=== PATIENT | male | born 1950 | race Caucasian/White ===

== ENCOUNTER → 2018-05-26 09:17 | Outpatient (CLI) | payer MEDICARE, MEDICAID, SELFPAY ==
[2018-05-26 12:09] LABS: Absolute Lymphocyte Count 2.11 X10^3/ul (0.83-4.51); Absolute Neutrophil Count 3.3 X10^3/uL (2.0-7.7); Basophil# 0.05 X10^3/uL; Basophil% 0.8 % (0-1); Eosinophils% 3.1 % (0-5); Hematocrit 48.9 % (40-54); Hemoglobin 16.5 g/dl (13.0-16.5); Lymphocyte # 2.11 X10^3/ul (4.0); Lymphocyte % 33.1 % (19-41); Mean Corp Hgb Conc 33.7 g/gl (32-36); Mean Corpuscular Volume 94.8 fL (80-94); Mean Platelet Vol. 10.1 fl (6.2-12.0); Monocyte# 0.67 X10^3/uL; Monocyte% 10.5 % (0-10); Neutrophil # 3.32 X10^3/uL (2.7-7.7); Neutrophil % 52.2 % (47-70); Platelet Count 211 K/mm3 (150-450); Red Blood Count 5.16 M/mm3 (4.6-6.2); White Blood Count 6.4 K/mm3 (4.4-11.0)
[2018-05-26 12:12] LABS: Differential Indicated SCAN CRITERIA MET; POSITIVE COUNT NO; POSITIVE DIFFERENTIAL NO; POSITIVE MORPHOLOGY YES
[2018-05-26 12:24] LABS: ALB/GLOB Ratio 1.1 RATIO (0.9-2.4); AST(SGOT) 24 U/L (15-37); Alanine Aminotransfer ALT/SGPT 26 U/L (16-61); Albumin, Serum 3.8 g/dL (3.2-5.0); Alkaline Phosphatase 76 U/L (45-117); Anion Gap 7 (5-15); BUN 13 mg/dL (7-18); Calcium,Total 8.5 mg/dL (8.5-10.1); Chloride 107 mmol/L (98-107); Creatinine, Serum 0.81 mg/dL (0.70-1.30); EST Glomerular Filtration Rate 101 mL/min (>60); Est Glom Filt Rate - Afr Amer 123 mL/min (>60); Globulin 3.6 g/dL (2.2-4.2); Glucose 91 mg/dL (74-106); Potassium 4.4 mmol/L (3.5-5.1); Protein, Total 7.4 g/dL (6.4-8.2); Sodium Level 139 mmol/L (136-145); Thyroid Stim Hormone (TSH) 4.17 uIU/mL (0.358-3.74)
[2018-05-26 12:27] LABS: Platelet Estimate ADEQUATE (ADEQ); Platelet Morphology LARGE
== END ==
PROVIDERS: Family Provider Family Medicine; PCP Family Medicine; Referring Provider Family Medicine; Visit Provider Family Medicine
DX: E78.00 Pure hypercholesterolemia, unspecified (principal); L65.9 Nonscarring hair loss, unspecified; R63.5 Abnormal weight gain
CPT/HCPCS: 36415; 80053; 84443; 85025

== ENCOUNTER → 2018-06-15 | Outpatient (CLI) | payer MEDICARE, MEDICAID, SELFPAY ==
--- NOTE | 2018-06-15 13:11 | CT_ITS ---
STUDY: LOW DOSE CT LUNG CANCER SCREENING REASON FOR EXAM: Male, 67 years old. 49 pack-year history of smoking. RADIATION DOSAGE (If Supplied By Facility): CTDIvol = ( 4.02 ) mGy, DLP = ( 165.07 ) mGycm TECHNIQUE: No contrast was administered. Low dose technique was utilized (average mAS-38 and kVp 120). 1.25 mm axial source images with a slice interval of 1.25-mm were reconstructed in lung windows. 2.5 mm axial source images with a slice interval of 2.5-mm were reconstructed in lung windows. 5.0 mm axial source images with a slice interval of 5.0-mm were reconstructed in soft tissue windows. Nodule measured using lung windows on PACS and/or independent workstation with automated measurement of minimum and maximum diameter. Nodule measurement reported as average diameter rounded to the nearest whole number. Growth is defined as an increase ins size of greater than 1.5 mm. COMPARISON: None. NODULES: No nodules are seen. Total lung nodules (excluding granulomas): Aorta: Scattered calcified plaques at the level of the aortic arch. Coronary arteries: Coronary artery calcifications. Heart: Not enlarged. Pulmonary artery: Unremarkable. Mediastinal nodes: Small benign-appearing mediastinal lymph nodes. Other chest and abdominal findings: CT/Low Dose CT Lung Screening IMPRESSION: Lung-RADS category 2 - Continue annual screening with LDCT in 12 months. IMPORTANT NOTES FOR USE: ACR Lung-RADS Version 1.0 Assessment Categories Release Date: July 03, 2013 Category: Coded 0-4 bases on nodule(s) with highest degree of suspicion. Negative screen is defined as categories 1 and 2; a positive screen is defined as categories 3 and 4. Category 3 and 4A nodules that are unchanged on interval CT should be coded as category 2, and individuals returned to screening in 12 months. Category 4X: Category 3 or 4 nodules with additional imaging findings that increase the suspicion of lung cancer, such as spiculation, GGN that doubles in size in 1 year, enlarged lymph notes, etc. Category Modifiers: S (significant finding unrelated to lung cancer) and C (prior history of treated lung cancer) may be added to the 0-4 Lung-RADS Electronically Signed: Marvel Dixon, at 15:19 EDT , Service support ,
== END | disposition home or self-care (01) ==
LOC: CT 13:10
PROVIDERS: Family Provider Family Medicine; PCP Family Medicine; Referring Provider Family Medicine; Visit Provider Family Medicine
DX: Z87.891 Personal history of nicotine dependence (principal); Z12.2 Encounter for screening for malignant neoplasm of respiratory organs
CPT/HCPCS: G0297

== ENCOUNTER 2018-07-22 09:04 | Day surgery (SDC) | payer MEDICARE, MEDICAID, SELFPAY ==
[2018-07-05 09:09] VITALS: BMI 38.9
--- NOTE | 2018-07-06 01:26 | HP_ITS ---
Intake Vital Signs 07/05/18 Height 5 ft 8 in 07/05/18 Weight: 256 lb 07/05/18 Body Mass Index (BMI) 38.9 07/05/18 Blood Pressure 146/80 H 07/05/18 Blood Pressure Location Rt brachial 07/05/18 Blood Pressure Position Sitting 07/05/18 Respiratory Rate 20 H 07/05/18 Pulse Rate 72 07/05/18 Pulse Source Monitor 07/05/18 Temperature 98.2 F 07/05/18 Temperature Source Oral 07/05/18 Pulse Ox 98 07/05/18 Oxygen Delivery Method room air Intake Visit Reasons: [employer] Required: No Is patient in pain?: No Allergies Penicillins Allergy (Intermediate, Verified 07/05/18 09:11) hives Medications ascorbic acid (vitamin C) 1,000 mg tablet 1 g PO DAILY tab 07/05/18 [History Confirmed 07/05/18] aspirin 500 mg tablet 500 mg PO DAILY 07/05/18 [History Confirmed 07/05/18] atorvastatin 20 mg tablet 20 mg PO QHS 07/05/18 [History Confirmed 07/05/18] calcium pantothenate 500 mg tablet mg PO tab 07/05/18 [History Confirmed 07/05/18] capsicum (cayenne) 450 mg capsule mg PO cap 07/05/18 [History Confirmed 07/05/18] cod liver oil capsule 1 cap PO DAILY 07/05/18 [History Confirmed 07/05/18] cranberry concentrate-ascorbic acid 4,200 mg-20 mg capsule cap PO cap 07/05/18 [History Confirmed 07/05/18] glucosamine HCl 1,500 mg tablet 1,500 mg PO DAILY 07/05/18 [History Confirmed 07/05/18] levothyroxine 50 mcg capsule 50 mcg PO DAILY 07/05/18 [History Confirmed 07/05/18] methylsulfonylmethane 1,000 mg capsule 1,500 mg PO DAILY cap 07/05/18 [History Confirmed 07/05/18] niacin 500 mg tablet 500 mg PO DAILY 07/05/18 [History Confirmed 07/05/18] potassium 99 mg tablet 2.5 meq PO DAILY 07/05/18 [History Confirmed 07/05/18] tamsulosin 0.4 mg capsule 0.4 mg PO DAILY 07/05/18 [History Confirmed 07/05/18] vitamin A 2,500 unit-vit C 100 mg-biotin 2,500 [id number] capsule cap PO cap 07/05/18 [History Confirmed 07/05/18] vitamin E (dl, acetate) 400 unit capsule 400 unit PO DAILY 07/05/18 [History Confirmed 07/05/18] yeast 500 mg (7.5 gr) tablet 500 mg PO BID 07/05/18 [History Confirmed 07/05/18] [facility] Medical History Arthritis (Acute) Gout (Acute) History of back problems (Acute) Hypercholesterolemia (Acute) Thyroid disease (Acute) Surgical History No history of previous surgery (Acute) Family History Father Arthritis Heart disease High cholesterol Brother Diabetes Hypertension High cholesterol Social History Smoking Status: Former smoker alcohol intake: current details: 2-6 beers per day substance use type: does not use HPI HPI HPI: RISA HOWELL, is a 67 M who presents to the office today for HPI HPI Surgical H&P: Yes HPI: RISA HOWELL, is a 67 M who presents to the office today for positive Cologuard. Patient has no family history of colon cancer no blood in his stool. He has never had a colonoscopy in the past. He is not describing any abdominal pain. ROS General General: Yes weight change and fatigue; no appetite, colon cancer, breast cancer or weakness HEENT HEENT: No difficulty swallowing, eye injury, eye surgery, swollen glands or hoarseness Endo Endocrine: Yes thyroid disease; no diabetes mellitus, thyroid cancer, Hair loss, heat intolerance or cold intolerance Skin Skin: No rash or changing moles Breast Breast: No left breast lump, right breast lump, nipple discharge, breast pain, abnormal mammogram, abnormal US or breast enlargement Musc Musculoskeletal: Yes back problems, arthritis and gout; no rheumatoid arthritis or joint pain Cardio Cardiovascular: No murmur, pacemaker, heart disease, atrial fibrillation, high blood pressure, heart attack, heart stent, palpitations, shortness of breat with exertion or chest pain Psych Psychiatric: No depression, anxiety or hearing voices Resp Respiratory: No shortness of breath, No sleep apnea, No cough, No COPD, No asthma, No emphysema, No wheezing Gastro Gastrointestinal: No abdominal pain, No nausea or vomiting, No diarrhea, No constipation, No blood in stool, No acid reflux, No hemorrhoids, No ulcers, No gallbladder problem, No black,tarry stools [place] Hematologic: No blood thinners, No blood disorders, No bleeding, No anemia, No blood clots Neuro Neurologic: No system reviewed and no additional complaints, except as docu, No as per HPI, No abnormal walking, No abnormal hearing, No abnormal movements, No abnormal speech, No behavioral changes, No burning sensations, No confusion, No seizure-like activity, No unsteadiness, No dizziness, No localized weakness, No frequent falls, No headache(s), No lack of coordination, No loss of vision, No memory loss, Yes numbness, No other visual disturbances, No radiating pain, No restless legs, No sensory deficit, No fainting, Yes tingling, No tremor(s), No weakness, No other Exam Const General: cooperative, no acute distress Chest Breast Palpation: No nipple discharge Resp Effort & Inspection: normal respiratory effort Auscultation: clear to auscultation bilaterally Cardio Rate: regular rate Rhythm: regular rhythm Heart Sounds: no murmurs GI Inspection: normal to inspection Palpation: soft, nontender Assessment & Plan Problems 1. Positive colorectal cancer screening using DNA-based stool test R19.5 Plan Recommend colonoscopy for positive Cologuard test. I explained endoscopy in detail to the patient. I explained the risks including but not limited to stroke or heart attack with anesthesia, perforation of the GI tract, bleeding, infection. I explained that any of these could necessitate further emergency surgery. The patient understands and all questions were answered sufficiently. The patient wishes to proceed with procedure. Donta Lazaro MD Pager: [facility] [address] [place] [address], [address] [place] [address] Office: Orders Orders: Colonoscopy Today R19.5 Coding Level of Care Code Off vis,new,level 3 Diagnoses Positive colorectal cancer screening using DNA-based stool test R19.5 07/06/18 1326 <Electronically signed by Donta Lazaro MD> Date Donta Lazaro MD I have re-examined the patient. There are no clinical changes since date of exam. Donta Lazaro MD Pager: [facility] [address] [place] [address], [address] [place] [id number] Office:
[2018-07-22 09:47] VITALS: BP 157/79; PULSE 69; RESP 18; TEMP 36.6; O2SAT 96; BMI 44.9
[2018-07-22 11:15] VITALS: BP 104/70; BP 157/79; PULSE 70; RESP 16; TEMP 36.2; O2SAT 94
--- NOTE | 2018-07-22 11:16 | OP.ENDO_ITS ---
07/22/2018 Radha Coleman [facility] [address] [place] [address] Re : Colonoscopy procedure for Jose Leblanc Dear Dr. Coleman This procedure was performed on Sunday, July 22, 2018. My impressions and recommendations are as follows: Impressions : - The entire examined colon is normal on direct and retroflexion views. - No specimens collected. Recommendations : - Discharge patient to home. - Resume previous diet. - Continue present medications. - Repeat colonoscopy in 10 years for screening purposes. My findings are described in the full procedure note, which is enclosed. If I can be of further assistance, please feel free to contact me at Doctor phone number(s): , Work: . Sincerely, Donta Lazaro MD 07/22/2018 11:15:45 AM This report has been signed electronically.
[2018-07-22 11:20] VITALS: BP 124/81; BP 157/79; PULSE 73; RESP 16; O2SAT 93
[2018-07-22 11:25] VITALS: BP 141/90; BP 157/79; PULSE 69; RESP 16; O2SAT 95
[2018-07-22 11:30] VITALS: BP 145/86; BP 157/79; PULSE 64; RESP 16; TEMP 36.6; O2SAT 96
[2018-07-22 11:34] VITALS: BP 157/79
== END 2018-07-22 12:02 | disposition home or self-care (01) ==
LOC: EN 09:07 → AC 09:31
PROVIDERS: Family Provider Family Medicine; PCP Family Medicine; Referring Provider Family Medicine; Visit Provider Surgery
PROC: 0DJD8ZZ Inspection of Lower Intestinal Tract, Via Natural or Artificial Opening Endoscopic (ICD-10-PCS; CPT 45378; principal; 2018-07-22 10:25)
DX: R19.5 Other fecal abnormalities (principal); E78.00 Pure hypercholesterolemia, unspecified; E07.9 Disorder of thyroid, unspecified; M19.90 Unspecified osteoarthritis, unspecified site; M10.9 Gout, unspecified; Z87.891 Personal history of nicotine dependence; Z79.82 Long term (current) use of aspirin; Z79.899 Other long term (current) drug therapy
CPT/HCPCS: 45378; J7120

== ENCOUNTER → 2018-09-05 | Outpatient (CLI) | payer MEDICARE, MEDICAID, SELFPAY ==
[2018-09-05 10:31] LABS: Cholesterol 185 mg/dL (200); High Density Lipoprotein 36 mg/dL; Thyroid Stim Hormone (TSH) 4.63 uIU/mL (0.358-3.74); Triglycerides 298 mg/dL; Very Low Density Lipoprotein 60 mg/dL (5-40)
== END | disposition home or self-care (01) ==
LOC: MTLAB 08:29
PROVIDERS: Family Provider Family Medicine; PCP Family Medicine; Referring Provider Family Medicine; Visit Provider Family Medicine
DX: E78.00 Pure hypercholesterolemia, unspecified (principal); E03.9 Hypothyroidism, unspecified
CPT/HCPCS: 36415; 80061; 84443

== ENCOUNTER → 2019-01-11 | Outpatient (CLI) | payer MEDICARE, MEDICAID, SELFPAY ==
[2019-01-11 10:54] LABS: Thyroid Stim Hormone (TSH) 3.63 uIU/mL (0.358-3.74)
== END | disposition home or self-care (01) ==
LOC: MTLAB 08:25
PROVIDERS: Family Provider Family Medicine; PCP Family Medicine; Referring Provider Family Medicine; Visit Provider Family Medicine
DX: E03.9 Hypothyroidism, unspecified (principal)
CPT/HCPCS: 36415; 84443

== ENCOUNTER → 2019-01-12 | Outpatient (CLI) | payer MEDICARE, MEDICAID, SELFPAY ==
[2019-01-12 10:37] LABS: Vitamin B12 > 2000 pg/mL (211-911)
== END | disposition home or self-care (01) ==
LOC: MTLAB 08:28
PROVIDERS: Family Provider Family Medicine; PCP Family Medicine; Referring Provider Family Medicine; Visit Provider Family Medicine
DX: R53.83 Other fatigue (principal)
CPT/HCPCS: 36415; 82306; 82607

== ENCOUNTER → 2019-02-01 10:43 | Outpatient (CLI) | payer MEDICARE, SELFPAY ==
--- NOTE | 2019-02-01 10:49 | ART_ITS ---
Reason For Study: leg pain Procedure A bilateral lower extremity continuous wave Doppler with analog waveform analysis and ankle brachial indexes. Left Segmental Pressures Left brachial= 174mmHg. Left posterior tibial artery = 181mmHg. Left dorsalis pedis artery = 188mmHg. Left digit = 141 mmHg. The left posterior tibial artery waveforms are triphasic. The left dorsalis pedis waveforms are triphasic. Right Segmental Pressures Right brachial= 182mmHg. Right posterior tibial artery = 197mmHg. Right dorsalis pedis artery = 175mmHg. Right digit = 124 mmHg. The right dorsalis pedis waveforms are triphasic. The right posterior tibial artery waveforms are triphasic. Indices The right ankle brachial index by the dorsalis pedis is .96. The right ankle brachial index by the posterior tibial artery is 1.08. The right digital-brachial index is .68. The left ankle brachial index by the dorsalis pedis is 1.03. The left ankle brachial index by the posterior tibial artery is .99. The left digital-brachial index is .77. Interpretation Summary Triphasic Doppler waveforms are noted at ankle level bilaterally. Pulse-volume recording waveform amplitudes appear moderately diminished at digital level bilaterally, though satisfactory at ankle level bilaterally. Resting ankle-brachial indices are normal bilaterally. The right digital-brachial index is mildly diminished. The left digital-brachial index is normal. Arterial flow appears normal at ankle level bilaterally. There appears to be mild, distal, small- vessel arterial occlusive disease at digital level on the right. Arterial flow appears to be normal at digital level on the left. Ordering Physician: Radha Coleman Performed By: LYNNE ESPOSITO Katelynn
== END ==
PROVIDERS: Family Provider Family Medicine; PCP Family Medicine; Referring Provider Family Medicine; Visit Provider Family Medicine
DX: I70.213 Atherosclerosis of native arteries of extremities with intermittent claudication, bilateral legs (principal); M79.604 Pain in right leg; M79.605 Pain in left leg; E78.00 Pure hypercholesterolemia, unspecified
CPT/HCPCS: 93922

== ENCOUNTER → 2019-05-17 09:19 | Outpatient (CLI) | payer MEDICARE, MEDICAID, SELFPAY ==
[2019-05-17 12:45] LABS: Cholesterol 143 mg/dL (200); High Density Lipoprotein 44 mg/dL; Thyroid Stim Hormone (TSH) 1.92 uIU/mL (0.358-3.74); Triglycerides 97 mg/dL; Very Low Density Lipoprotein 19 mg/dL (5-40)
== END ==
PROVIDERS: PCP Family Medicine; Referring Provider Family Medicine; Visit Provider Family Medicine
DX: E03.9 Hypothyroidism, unspecified (principal); E78.00 Pure hypercholesterolemia, unspecified
CPT/HCPCS: 36415; 80061; 84443

== ENCOUNTER → 2019-05-30 10:47 | Outpatient (CLI) | payer MEDICARE, MEDICAID, SELFPAY ==
[2019-05-30 12:05] LABS: Absolute Lymphocyte Count 1.87 X10^3/uL (0.83-4.51); Absolute Neutrophil Count 3.6 X10^3/uL (2.0-7.7); Basophil# 0.04 X10^3/uL; Basophil% 0.6 % (0-1); Eosinophil# 0.19 X10^3/uL; Hematocrit 42.9 % (40-54); Lymphocyte # 1.87 X10^3/ul (4.0); Lymphocyte % 29.4 % (19-41); Mean Corp Hgb Conc 32.6 g/dL (32-36); Mean Corpuscular Volume 91.9 fL (80-94); Mean Platelet Vol. 9.7 fl (6.2-12.0); Monocyte% 9.4 % (0-10); NRBC Flagged by Analyzer 0 % (0-5); Neutrophil # 3.64 X10^3/uL (2.7-7.7); Neutrophil % 57.3 % (47-70); Platelet Count 222 K/mm3 (150-450); RBC Distribution Width CV 11.9 % (11.6-14.6); Red Blood Count 4.67 M/mm3 (4.6-6.2); White Blood Count 6.4 K/mm3 (4.4-11.0)
[2019-05-30 12:36] LABS: AST(SGOT) 21 U/L (15-37); Alanine Aminotransfer ALT/SGPT 28 U/L (16-61); Albumin, Serum 3.7 g/dL (3.2-5.0); Alkaline Phosphatase 99 U/L (45-117); Anion Gap 6 (5-15); BUN 10 mg/dL (7-18); Calcium,Total 8.8 mg/dL (8.5-10.1); Chloride 105 mmol/L (98-107); Creatinine, Serum 0.77 mg/dL (0.70-1.30); EST Glomerular Filtration Rate 108 mL/min (>60); Est Glom Filt Rate - Afr Amer 130 mL/min (>60); Globulin 3.6 g/dL (2.2-4.2); Glucose 91 mg/dL (74-106); Potassium 4.2 mmol/L (3.5-5.1); Protein, Total 7.3 g/dL (6.4-8.2); Sodium Level 141 mmol/L (136-145)
== END ==
PROVIDERS: PCP Family Medicine; Visit Provider Family Medicine
DX: E03.9 Hypothyroidism, unspecified (principal); M10.9 Gout, unspecified; E78.00 Pure hypercholesterolemia, unspecified; N40.0 Benign prostatic hyperplasia without lower urinary tract symptoms
CPT/HCPCS: 36415; 80053; 85025

== ENCOUNTER → 2019-06-16 12:42 | Outpatient (CLI) | payer MEDICARE, MEDICAID, SELFPAY ==
--- NOTE | 2019-06-16 12:49 | CT_ITS ---
STUDY: LOW DOSE CT LUNG CANCER SCREENING REASON FOR EXAM: Male, 68 years old. 49 PACK YEAR SMOKING HISTORY. QUIT 2 YEARS AGO RADIATION DOSAGE (If Supplied By Facility): CTDIvol = ( 3.40 ) mGy, DLP = ( 104.67 ) mGycm TECHNIQUE: No contrast was administered. Low dose technique was utilized (average mAS-38 and kVp 120). 1.25 mm axial source images with a slice interval of 1.25-mm were reconstructed in lung windows. 2.5 mm axial source images with a slice interval of 2.5-mm were reconstructed in lung windows. 5.0 mm axial source images with a slice interval of 5.0-mm were reconstructed in soft tissue windows. Nodule measured using lung windows on PACS and/or independent workstation with automated measurement of minimum and maximum diameter. Nodule measurement reported as average diameter rounded to the nearest whole number. Growth is defined as an increase ins size of greater than 1.5 mm. COMPARISON: Comparison is made with prior study dated June 15, 2018. NODULES: No suspicious nodules are seen. Emphysema: Hyperinflation. Aorta: Minimal calcific plaque of the aortic arch. Coronary arteries: Coronary artery calcification. Mediastinal nodes: Benign appearing mediastinal lymph nodes. Other chest and abdominal findings: Degenerative changes of the thoracic spine. CT/Low Dose CT Lung Screening IMPRESSION: Lung-RADS category 2 - Continue annual screening with LDCT in 12 months. IMPORTANT NOTES FOR USE: ACR Lung-RADS Version 1.0 Assessment Categories Release Date: July 03, 2013 Category: Coded 0-4 bases on nodule(s) with highest degree of suspicion. Negative screen is defined as categories 1 and 2; a positive screen is defined as categories 3 and 4. Category 3 and 4A nodules that are unchanged on interval CT should be coded as category 2, and individuals returned to screening in 12 months. Category 4X: Category 3 or 4 nodules with additional imaging findings that increase the suspicion of lung cancer, such as spiculation, GGN that doubles in size in 1 year, enlarged lymph notes, etc. Category Modifiers: S (significant finding unrelated to lung cancer) and C (prior history of treated lung cancer) may be added to the 0-4 Lung-RADS Electronically Signed: Marvel Dixon, at 14:43 EDT , Service support ,
== END ==
PROVIDERS: PCP Family Medicine; Referring Provider Family Medicine; Visit Provider Family Medicine
DX: Z12.2 Encounter for screening for malignant neoplasm of respiratory organs (principal); Z87.891 Personal history of nicotine dependence
CPT/HCPCS: G0297

== ENCOUNTER → 2019-08-03 11:51 | Outpatient (CLI) | payer MEDICARE, MEDICAID, SELFPAY ==
--- NOTE | 2019-08-03 12:01 | RAD_ITS ---
STUDY: X-RAY - PELVIS AND RIGHT HIP REASON FOR EXAM: Male, 68 years old. Chronic right leg pain, hip joint stiffness TECHNIQUE: 3 views of the pelvis and hip. COMPARISON: None. FINDINGS: There is a non-specific bowel gas pattern. Normal visualized soft tissue structures. There is mild SI joint osteoarthritic changes. Normal bilateral superior and inferior pubic rami. Normal pubic symphysis. Normal bilateral ischial tuberosities. There are osteoarthritic changes of the femoral head with marginal osteophyte formation. Subchondral sclerotic changes in the femoral head as well. There is cortical sclerosis with sub-cortical cyst formation of the acetabulum. There is severe articular joint space narrowing of the hip. RAD/HIP, UNI W/ Pelvis 2-3 Views IMPRESSION: Severe narrowing of the right hip joint with subchondral cyst formation in the acetabulum, and subchondral changes in the femoral head. No femoral head flattening. Nonetheless findings are consistent with plain film changes of AVN. Mild left hip and SI joint arthrosis Electronically Signed: Roby Carrillo MD at 17:03 EDT , Service support ,
== END ==
PROVIDERS: PCP Family Medicine; Referring Provider Anesthesiology Pain Medicine; Visit Provider Anesthesiology Pain Medicine
DX: M25.551 Pain in right hip (principal)
CPT/HCPCS: 73502

== ENCOUNTER → 2019-11-02 10:54 | Outpatient (CLI) | payer MEDICARE, MEDICAID, SELFPAY ==
--- NOTE | 2019-11-02 10:58 | RAD_ITS ---
STUDY: X-RAY - RIGHT KNEE REASON FOR EXAM: Male, 68 years old. right knee pain TECHNIQUE: 4 view(s) of the knee. COMPARISON: None. FINDINGS: Normal visualized distal femur. Normal visualized proximal tibia and fibula. Normal proximal tibiofibular articulation. Normal medial femorotibial compartment. Normal lateral femorotibial compartment. There is mild degenerative arthrosis of the patellofemoral articulation. There is a small enthesophyte of the superior patella. There is no evidence of fracture, dislocation, free intra-articular calcifications, or suprapatellar effusion. The soft tissue structures are unremarkable. RAD/Knee 4 or More Views IMPRESSION: Mild degenerative changes of the patellofemoral compartment. Small enthesophyte of the superior patella in the region of the quadriceps tendon insertion. Electronically Signed: Joshua Gambino MD at 22:48 EDT , Service support ,
== END ==
PROVIDERS: PCP Family Medicine; Referring Provider Nurse Practitioner Family; Visit Provider Nurse Practitioner Family
DX: M25.561 Pain in right knee (principal)
CPT/HCPCS: 73564

== ENCOUNTER → 2020-05-27 08:57 | Outpatient (CLI) | payer MEDICARE, MEDICAID, SELFPAY ==
[2020-05-27 11:03] LABS: AST(SGOT) 25 U/L (15-37); Alanine Aminotransfer ALT/SGPT 32 U/L (16-61); Albumin, Serum 3.6 g/dL (3.2-5.0); Alkaline Phosphatase 100 U/L (45-117); Anion Gap 7 (5-15); BUN 14 mg/dL (7-18); BUN/Creat Ratio 18.8 RATIO (10-20); Calcium,Total 8.9 mg/dL (8.5-10.1); Chloride 108 mmol/L (98-107); Cholesterol 149 mg/dL (200); Creatinine, Serum 0.74 mg/dL (0.70-1.30); EST Glomerular Filtration Rate 111 mL/min (>60); Est Glom Filt Rate - Afr Amer 135 mL/min (>60); Globulin 3.6 g/dL (2.2-4.2); Glucose 84 mg/dL (74-106); High Density Lipoprotein 41 mg/dL; PSA,Total - Annual Screen 2.16 ng/mL (0.00-4.00); Potassium 3.9 mmol/L (3.5-5.1); Protein, Total 7.2 g/dL (6.4-8.2); Sodium Level 142 mmol/L (136-145); Thyroid Stim Hormone (TSH) 1.56 uIU/mL (0.358-3.74); Triglycerides 130 mg/dL; Very Low Density Lipoprotein 26 mg/dL (5-40)
[2020-05-27 12:05] LABS: Absolute Lymphocyte Count 1.81 X10^3/uL (0.83-4.51); Absolute Neutrophil Count 4.8 X10^3/uL (2.0-7.7); Basophil# 0.04 X10^3/uL; Basophil% 0.5 % (0-1); Eosinophil# 0.22 X10^3/uL; Eosinophils% 2.9 % (0-5); Hemoglobin 14.6 g/dL (13.0-16.5); Lymphocyte # 1.81 X10^3/ul (4.0); Lymphocyte % 24.2 % (19-41); Mean Corp Hgb Conc 33.2 g/dL (32-36); Mean Corpuscular Hgb 29.7 pg (27.0-32.0); Mean Corpuscular Volume 89.4 fL (80-94); Mean Platelet Vol. 9.9 fl (6.2-12.0); Monocyte# 0.61 X10^3/uL; Monocyte% 8.2 % (0-10); NRBC Flagged by Analyzer 0 % (0-5); Neutrophil # 4.78 X10^3/uL (2.7-7.7); Neutrophil % 63.9 % (47-70); Platelet Count 284 K/mm3 (150-450); RBC Distribution Width CV 14.7 % (11.6-14.6); Red Blood Count 4.92 M/mm3 (4.6-6.2); White Blood Count 7.5 K/mm3 (4.4-11.0)
== END ==
PROVIDERS: PCP Family Medicine; Referring Provider Family Medicine; Visit Provider Family Medicine
DX: N40.0 Benign prostatic hyperplasia without lower urinary tract symptoms (principal); E78.00 Pure hypercholesterolemia, unspecified; E03.9 Hypothyroidism, unspecified; M10.9 Gout, unspecified; Z12.5 Encounter for screening for malignant neoplasm of prostate
CPT/HCPCS: 36415; 80053; 80061; 84153; 84443; 85025; G0103

== ENCOUNTER → 2020-06-20 12:43 | Outpatient (CLI) | payer MEDICARE, SELFPAY ==
--- NOTE | 2020-06-20 12:45 | CT_ITS ---
STUDY: LOW DOSE CT LUNG CANCER SCREENING REASON FOR EXAM: Male, 69 years old. SCREENING. The patient smoked 1 pack per day for 49 years. The patient quit 3 years ago. RADIATION DOSAGE (If Supplied By Facility): CTDIvol = ( 4.02 ) mGy, DLP = ( 139.44 ) mGycm TECHNIQUE: No contrast was administered. Low dose technique was utilized (average mAS-38 and kVp 120). 1.25 mm axial source images with a slice interval of 1.25-mm were reconstructed in lung windows. 2.5 mm axial source images with a slice interval of 2.5-mm were reconstructed in lung windows. 5.0 mm axial source images with a slice interval of 5.0-mm were reconstructed in soft tissue windows. Nodule measured using lung windows on PACS and/or independent workstation with automated measurement of minimum and maximum diameter. Nodule measurement reported as average diameter rounded to the nearest whole number. Growth is defined as an increase ins size of greater than 1.5 mm. COMPARISON: Comparison is made with prior study dated 06/16/2019. NODULES: No suspicious nodules are seen. Emphysema: Hyperinflation. Endobronchial lesion: None Aorta: Mild atherosclerotic plaques of the otic arch. Coronary arteries: Coronary artery calcification. Mediastinal nodes: Stable small benign-appearing mediastinal lymph nodes. Other chest and abdominal findings: CT/Low Dose CT Lung Screening IMPRESSION: Lung-RADS category 2 - Continue annual screening with LDCT in 12 months. IMPORTANT NOTES FOR USE: ACR Lung-RADS Version 1.1 Assessment Categories Release Date: 2018 Category: Coded 0-4 bases on nodule(s) with highest degree of suspicion. Negative screen is defined as categories 1 and 2; a positive screen is defined as categories 3 and 4. Category 3 and 4A nodules that are unchanged on interval CT should be coded as category 2, and individuals returned to screening in 12 months. Category 4X: Category 3 or 4 nodules with additional imaging findings that increase the suspicion of lung cancer, such as spiculation, GGN that doubles in size in 1 year, enlarged lymph notes, etc. Category Modifiers: S (significant finding unrelated to lung cancer) Electronically Signed: Marvel Dixon MD at 8:54 EDT , Service support ,
== END ==
PROVIDERS: PCP Family Medicine; Referring Provider Family Medicine; Visit Provider Family Medicine
DX: Z12.2 Encounter for screening for malignant neoplasm of respiratory organs (principal); Z20.828 Contact with and (suspected) exposure to other viral communicable diseases; Z87.891 Personal history of nicotine dependence
CPT/HCPCS: 71271; 87635; U0002

== ENCOUNTER → 2021-02-04 15:31 | Outpatient (CLI) | payer MEDICARE, MEDICAID, SELFPAY | PROVIDERS: PCP Family Medicine; Referring Provider Family Medicine; Visit Provider Family Medicine | DX: U07.1 COVID-19 (principal) | CPT/HCPCS: 87635; U0005; U0003 ==

== ENCOUNTER → 2021-07-17 | Outpatient (CLI) | payer MEDICARE, MEDICAID, SELFPAY ==
--- NOTE | 2021-07-17 11:35 | RAD_ITS ---
STUDY: X-RAY - RIGHT SHOULDER REASON FOR EXAM: Male, 70 years old. Pain. TECHNIQUE: 4 view(s) of the shoulder. COMPARISON: None. FINDINGS: Osteopenia. Mild arthrosis of the glenohumeral joint. Moderate arthrosis of the AC joint. Small subacromial spur. Normal humeral head and visualized proximal humerus. The soft tissue structures are unremarkable. Normal visualized pulmonary apex. RAD/Shoulder min 2 Views IMPRESSION: Osteopenia with osteoarthrosis of the glenohumeral and acromioclavicular joints. Small subacromial spur. No acute abnormality or erosive changes. Electronically Signed: Willard Osullivan MD at 12:49 EDT ,
== END | disposition home or self-care (01) ==
PROVIDERS: PCP Family Medicine; Referring Provider Family Medicine; Visit Provider Family Medicine
DX: M25.511 Pain in right shoulder (principal)
CPT/HCPCS: 73030

== ENCOUNTER 2021-07-28 14:45 | Outpatient (CLI) | payer MEDICARE, MEDICAID, SELFPAY ==
--- NOTE | 2021-07-28 14:51 | CT_ITS ---
STUDY: CT CHEST WITHOUT CONTRAST- LOW DOSE SCREENING PROTOCOL REASON FOR EXAM: Male, 70 years old. Former smoker. 40 pack per year history. No current symptoms of lung cancer or pulmonary infection. Shared decision-making with referring PCP documented in patient''s record. RADIATION DOSAGE (If Supplied By Facility): CTDIvol = ( 4.02 ) mGy, DLP = ( 133.91 ) mGycm TECHNIQUE: Low dose screening CT examination performed from the base of the neck to the upper abdomen. Sagittal and coronal reformatted images performed. Sagittal and coronal MIP images provided. The measurements provided are average, rounded measurements per ACR guidelines. COMPARISON: 06/20/2020 FINDINGS: The lungs are normal. There is no demonstrated pleural abnormality. Normal heart and pericardium. There are calcifications of the coronary arteries. Normal mediastinum. Normal hilar regions. Normal unenhanced pulmonary arteries. Normal aorta arch and descending thoracic aorta. Normal osseous structures. There is no demonstrated abnormality of the visualized upper abdomen. CT/Low Dose CT Lung Screening IMPRESSION: 1. No significant indeterminate incidental findings requiring additional imaging. 2. Incidental findings include calcified coronary plaque. ASSESSMENT CATEGORY: LungRADS 1 - Negative. Continue annual screening with LDCT in 12 months, per established ACR guidelines. Electronically Signed: Layo Parker MD at 9:34 EDT ,
== END 2021-07-28 23:59 | disposition home or self-care (01) ==
LOC: CT 14:48
PROVIDERS: PCP Family Medicine; Visit Provider Family Medicine
DX: Z12.2 Encounter for screening for malignant neoplasm of respiratory organs (principal); Z87.891 Personal history of nicotine dependence
CPT/HCPCS: 71271; 96401

== ENCOUNTER → 2021-12-25 | Outpatient (CLI) | payer MEDICARE, MEDICAID, SELFPAY ==
--- NOTE | 2021-12-25 10:11 | RAD_ITS ---
STUDY: X-RAY CHEST REASON FOR EXAM: Male, 71 years old. PNEUMONIA TECHNIQUE: PA and lateral views of the chest. COMPARISON: None. FINDINGS: Patchy alveolar opacities in both lungs consistent with bilateral pneumonia. CT may be useful. There is no demonstrated pleural abnormality. Normal size heart. Normal mediastinum and jovany. Normal visualized pulmonary arteries. Normal visualized aortic arch and descending thoracic aorta. Normal visualized thoracic spine. Normal visualized ribs, clavicles, and shoulders. There is no demonstrated abnormality of the visualized soft tissue structures of the upper abdomen. RAD/Chest PA and Lateral IMPRESSION: Suspect bilateral pneumonia. Correlation with CT would be useful. Electronically Signed: Layo Parker MD at 10:34 EDT ,
== END | disposition home or self-care (01) ==
LOC: MTRAD 10:10
PROVIDERS: PCP Family Medicine; Referring Provider Family Medicine; Visit Provider Family Medicine
DX: J18.9 Pneumonia, unspecified organism (principal)
CPT/HCPCS: 71046

== ENCOUNTER → 2022-01-06 | Outpatient (CLI) | payer MEDICARE, MEDICAID, SELFPAY ==
--- NOTE | 2022-01-06 11:05 | RAD_ITS ---
STUDY: X-RAY CHEST REASON FOR EXAM: Male, 71 years old. Bilateral pneumonia, still febrile after antibiotics TECHNIQUE: PA and lateral views of the chest. COMPARISON: Comparison is made with prior study dated 12/25/2021. FINDINGS: Stable bilateral pleural thickening along the lateral aspects of both hemithoraces worse on the left side. Stable multiple healed bilateral rib fractures. Normal size heart. Normal mediastinum and jovany. Normal visualized pulmonary arteries. There is atherosclerotic tortuosity of the aortic arch and descending thoracic aorta. There are diffuse degenerative changes of the visualized thoracic spine. Normal visualized ribs, clavicles, and shoulders. There is no demonstrated abnormality of the visualized soft tissue structures of the upper abdomen. RAD/Chest PA and Lateral IMPRESSION: Stable bilateral pleural thickening worse in the left hemithorax. Electronically Signed: Marvel Dixon MD at 12:16 EDT ,
== END | disposition home or self-care (01) ==
LOC: MTLAB 11:00 → MTRAD 11:01
PROVIDERS: PCP Family Medicine; Referring Provider Family Medicine; Visit Provider Family Medicine
DX: J18.9 Pneumonia, unspecified organism (principal)
CPT/HCPCS: 71046

== ENCOUNTER → 2022-01-07 | Outpatient (CLI) | payer MEDICARE, MEDICAID, SELFPAY ==
--- NOTE | 2022-01-07 10:21 | CT_ITS ---
STUDY: CT CHEST WITHOUT CONTRAST REASON FOR EXAM: Male, 71 years old. BILAT PNEUMONIA RADIATION DOSAGE (If Supplied By Facility): CTDIvol = ( 18.89 ) mGy, DLP = ( 641.99 ) mGycm TECHNIQUE: Transaxial imaging was performed without the administration of intravenous contrast material. Multiplanar coronal and sagittal images were reformatted. Individualized dose optimization techniques were used for this CT. COMPARISON: Comparison is made with prior study dated 07/28/2021. Comparison is also made with prior chest radiograph dated 01/06/2022. FINDINGS: CHEST There is a 1.4 cm pleural-based nodule in the posterior right upper lobe. Smaller pleural-based nodules are also seen in the superior segment of the right lower lobe as well as in the posterior aspect of the right upper lobe. Multiple pleural nodules are seen in the right major fissure. Nodular density is also seen in both lower lobes. Metastatic disease should be ruled out. There is evidence of bilateral nodular enlargement of the pleura bilaterally worse in the left hemithorax. Fluid is seen in the left major fissure. Small left pleural effusion. There are calcifications of the coronary arteries. There are multiple small lymph nodes within the mediastinum, which are normal in size and morphology most compatible with reactive lymph hyperplasia. Normal hilar regions. Normal unenhanced pulmonary arteries. Normal aorta arch and descending thoracic aorta. There are multi-level degenerative changes of the thoracic spine. Loss of height of the dorsal vertebrae. Lytic lesion seen in several thoracic vertebrae. Metastatic disease should be ruled out. Retrocrural lymphadenopathy. Diffuse nodular enlargement of the left adrenal gland. Metastasis should be ruled out. CT/Chest without Contrast IMPRESSION: Multiple bilateral pleural-based nodules worse in the left hemithorax with small left pleural effusion. Fluid is seen in the left major fissure. Pleural metastasis should be ruled out. Multiple pulmonary nodules as described. Retrocrural lymphadenopathy. Diffuse nodular enlargement of the left adrenal gland. Metastasis should be ruled out. Electronically Signed: Marvel Dixon MD at 10:57 EDT ,
== END | disposition home or self-care (01) ==
LOC: CT 10:16
PROVIDERS: PCP Family Medicine; Visit Provider Family Medicine
DX: J18.9 Pneumonia, unspecified organism (principal); J90 Pleural effusion, not elsewhere classified
CPT/HCPCS: 71250

== ENCOUNTER → 2022-01-19 | Outpatient (CLI) | payer MEDICARE, MEDICAID, SELFPAY ==
[2022-01-19 14:13] LABS: Platelet Count 422 K/mm3 (150-450)
[2022-01-19 14:24] LABS: International Normalized Ratio 1.3; Prothrombin Time (Protime)PT. 16.1 SECONDS (11.7-14.9)
== END | disposition home or self-care (01) ==
LOC: PAVLAB 13:39
PROVIDERS: PCP Family Medicine; Referring Provider Internal Medicine Critical Care Medicine; Visit Provider Internal Medicine Critical Care Medicine
DX: R29.898 Other symptoms and signs involving the musculoskeletal system (principal)
CPT/HCPCS: 36415; 85049; 85610

== ENCOUNTER 2022-01-22 09:41 | Emergency (ER) | payer MEDICARE, MEDICAID, SELFPAY ==
[2022-01-22 09:41] VITALS: BP 115/73; PULSE 105; RESP 16; TEMP 36.9; O2SAT 91; BMI 33.7
--- NOTE | 2022-01-22 10:25 | RAD_ITS ---
STUDY: X-RAY CHEST REASON FOR EXAM: Male, 71 years old. Shortness of Breath . Cough. Known lung nodules. TECHNIQUE: Single AP portable view of the chest. COMPARISON: Comparison is made with prior study dated 01/06/2022. FINDINGS: EKG electrodes are seen. Stable appearance of the bilateral nodular pleural thickening worse along the lateral chest. Mild increased markings at the lung bases as compared to prior study suggestive of bibasilar atelectasis and/or early infiltrates. Normal size heart. Normal mediastinum and jovany. Normal visualized pulmonary arteries. There is atherosclerotic tortuosity of the aortic arch and descending thoracic aorta. There are degenerative changes of the visualized thoracic spine. Normal visualized ribs, clavicles, and shoulders. There is no demonstrated abnormality of the visualized soft tissue structures of the upper abdomen. RAD/Chest 1 View (Portable) IMPRESSION: Stable bilateral nodular pleural thickening. Mild increased markings at the lung bases suggestive of bibasilar atelectasis and/or early infiltrates. Electronically Signed: Marvel Dixon MD at 11:05 EST ,
--- NOTE | 2022-01-22 10:26 | ED.VIS.DYS ---
HPI History of Present Illness Chief Complaint: Shortness of Breath Narrative Narrative: 71-year-old male with history of multiple lung nodules, chronic neck and back pain presents with shortness of breath and reported tachypnea and tachycardia. He states that Dr. Patel with pulmonology was having CT-guided lung biopsy supposed to be performed today. He was in radiology and he was reported to be tachypneic, belly breathing and tachycardic having a hard time breathing while laying down. They were uncomfortable performing the procedure. They bring him to the emergency department with reported hypoxia and tachypnea. He states that he has been sick for the last month since mid-December. He says that they are concerned that he has infection in his lungs. [facility] Medical History Arthritis Chronic neck and back pain Gout History of back problems Hypercholesterolemia Knee pain Limb weakness Shoulder pain Thyroid disease Home Medications ascorbic acid (vitamin C) 1,000 mg tablet 1 g PO DAILY 07/05/18 [History Last Taken Unknown] aspirin 500 mg tablet (Rolly Advanced) 500 mg PO DAILY 07/05/18 [History Last Taken 07/17/18] atorvastatin 20 mg tablet 10 mg PO QHS 07/05/18 [History Last Taken Unknown] tamsulosin 0.4 mg capsule 0.4 mg PO DAILY 07/05/18 [History Last Taken Unknown] albuterol sulfate 90 mcg/actuation aerosol inhaler (Ventolin HFA) 1 - 2 puff inhalation Q4H PRN PRN Wheezing #1 ea 01/22/22 [Rx Last Taken Unknown] levothyroxine 88 mcg tablet (Synthroid) 88 mcg PO DAILY 01/22/22 [History Last Taken Unknown] Allergy/AdvReac Type Severity Reaction Status Date / Time Penicillins Allergy Intermediate hives Verified 01/22/22 09:48 Family History Father Arthritis Heart disease High cholesterol Brother Diabetes Hypertension High cholesterol Surgical History History of hip replacement No history of previous surgery Social History Smoking Status: Former smoker alcohol intake: former details: 2-6 beers per day substance use type: does not use ROS ROS ED ROS Narrative Constitutional: No fever, no chills. HEENT: No sore throat. No neck pain. No loss of vision. No rhinorrhea. Cardiovascular: No chest pain. No palpitations. No pedal edema. Respiratory: Positive cough, positive shortness of breath. Abdominal: No abdominal pain. No nausea. No vomiting. Genitourinary: No dysuria. No hematuria. Musculoskeletal: No myalgias. No arthralgias. Chronic neck and back pain. Neurologic: No headaches. No dizziness. No lightheadedness. Skin: No rash. No change in color. Psychiatric: No depression. No anxiety. EXAM Physical Exam Narrative Exam Narrative: Afebrile. Vital signs noted. HEENT: Normocephalic. Atraumatic. PERRL, EOMI. Neck soft and supple. No point tenderness or step off. Cardiovascular: Regular rate and rhythm with intermittent tachycardia. No murmurs, rubs, or gallops appreciated. Respiratory: No tachypnea. Lungs clear to auscultation bilaterally. Gastrointestinal: Abdomen soft, nontender, with normoactive bowel sounds. No rebound or guarding. Neurological: Awake. Alert. Nonfocal, nonlateralizing. Skin: No rash. Normal color. No pallor. Musculoskeletal: No pedal edema. Full range of motion extremities. Const Vital Signs: 01/22/22 09:41 01/22/22 10:58 01/22/22 10:58 Temperature 98.4 F Temperature Source Oral Pulse Rate 105 H 99 Respiratory Rate 16 18 Respiratory Effort Normal Non-Labored Respiratory Depth Normal Respiratory Pattern Tachypnea Blood Pressure 115/73 114/61 Blood Pressure Mean 87 78 Pulse Ox 91 92 Oxygen Delivery Method Room Air Room Air Room Air MDM MDM MDM Narrative Medical decision making narrative: 90Comprehensive work-up was pursued. He was swabbed for COVID, flu, and RSV additionally. Initially I will obtain a 1 view chest x-ray that I will interpret. EKG was obtained which I interpreted as normal sinus rhythm as per minute with a right bundle branch block. There is no prior with which to compare. No acute ST changes, no STEMI. CBC shows elevated white count of 12.3 which I think is nonspecific, hemoglobin stable at 10.0, hematocrit 33.3. Electrolyte panel is remarkable for creatinine of 0.49. Lactic acid is slightly elevated 2.4, he was bolused normal saline 1 L intravenously. LFTs show a 51 AST and ALT low at 12 with alk phos slightly elevated at 201 which I think is nonspecific. Chest x-ray interpreted by myself shows bibasilar atelectasis and pulmonary nodules. That was the reason why he was getting biopsy today. He was ambulated on a pulse ox and had no significant tachycardia or oxygen desaturation. I discussed the patient with his community living specialist, Dr. Patel who states that he probably does need outpatient work-up for COPD. He will be discharged with an albuterol inhaler. It was not recommended that he be started on steroids for his COPD. It was stressed by Dr. Patel that he does need outpatient work-up of his pulmonary nodules. He is currently stable. He did tell the RN and myself that he has all over body pain and is also having back pain. I was not felt by pulmonology and myself that he required another round of antibiotics because he has already completed 2 rounds by his primary care provider, most recently Margie. The patient states that he wanted to be admitted to find out what is going on. However, he currently does not meet any observation or admission criteria. He did speak with social work regarding the possibility of observation for placement, but he declined and stated to her that I want to go home. I feel he can be discharged safely home with follow-up. Return instructions to the emergency department were reviewed. I did stress the importance of him getting follow-up for his multiple pulmonary nodules, and to follow-up with pulmonology for outpatient COPD work-up. Disposition is discharged home in stable condition. Lab Data Attestation: I reviewed the patient's lab results. Labs: Laboratory Results - last 24 hr 01/22/22 01/22/22 01/22/22 10:35 10:35 11:45 WBC 12.3 H RBC 4.02 L Hgb 10.0 L Hct 33.3 L MCV 82.8 MCH 24.9 L MCHC 30.0 L RDW Std Deviation 51.8 H RDW Coeff of Rae 17.4 H Plt Count 466 H MPV 9.1 Immature Gran % (Auto) 0.600 Neut % (Auto) 76.4 H Lymph % (Auto) 11.6 L Walsh % (Auto) 8.8 Eos % (Auto) 2.1 Baso % (Auto) 0.5 Absolute Neuts (auto) 9.4 H Absolute Lymphs (auto) 1.43 Nucleated RBC % 0 Sodium 140 Potassium 4.2 Chloride 105 Carbon Dioxide 27.0 Anion Gap 8 BUN 13 Creatinine 0.49 L Estim Creat Clear Calc 67.45 Est GFR (MDRD) Af Amer 219 Est GFR (MDRD) Non-Af 181 BUN/Creatinine Ratio 26.7 H Glucose 88 Lactic Acid 2.4 H* Calcium 9.0 Total Bilirubin 0.60 AST 51 H ALT 12 L Alkaline Phosphatase 201 H Total Protein 6.4 Albumin 1.9 L Globulin 4.5 H Albumin/Globulin Ratio 0.4 L Radiography Diagnostic Testing: Clinical Impression(s) from Imaging Studies Chest X-Ray 01/22/22 10:25 IMPRESSION: Stable bilateral nodular pleural thickening. Mild increased markings at the lung bases suggestive of bibasilar atelectasis and/or early infiltrates. Electronically Signed: Marvel Dixon MD at 11:05 EST , Discharge Plan Triage Chief Complaint: Shortness of Breath ED Provider: Jack Stein Dx/Rx/DC Orders Clinical Impression: SOB (shortness of breath), Chronic neck and back pain, Multiple lung nodules on CT, Whole body pain, Lactic acidosis Instructions: ED Dyspnea, ED Pain, Acute, Uncertain Cause Prescriptions: New albuterol sulfate [Ventolin HFA] 90 mcg/actuation HFA aerosol inhaler 1 - 2 puff inhalation Q4H PRN PRN (Reason: Wheezing) Qty: 1 0RF No Action atorvastatin 20 mg tablet 10 mg PO QHS tamsulosin 0.4 mg capsule 0.4 mg PO DAILY Rolly Advanced 500 mg tablet 500 mg PO DAILY Label Comments: stopped for scope [address] pena ascorbic acid (vitamin C) 1,000 mg tablet 1 g PO DAILY levothyroxine [Synthroid] 88 mcg tablet 88 mcg PO DAILY Primary Care Provider: Radha Coleman Referrals: Adam Patel DO [Med Staff - Active Staff] - As soon as possible Radha Coleman MD [Primary Care Provider] - Disposition Disposition: Home, Self Care
[2022-01-22 10:42] LABS: Absolute Lymphocyte Count 1.43 X10^3/uL (0.83-4.51); Absolute Neutrophil Count 9.4 X10^3/uL (2.0-7.7); Basophil# 0.06 X10^3/uL; Basophil% 0.5 % (0-1); Eosinophil# 0.26 X10^3/uL; Eosinophils% 2.1 % (0-5); Hematocrit 33.3 % (40-54); Lymphocyte # 1.43 X10^3/ul (0.83-4.51); Lymphocyte % 11.6 % (19-41); Mean Corpuscular Hgb 24.9 pg (27.0-32.0); Mean Corpuscular Volume 82.8 fL (80-94); Mean Platelet Vol. 9.1 fl (6.2-12.0); Monocyte# 1.08 X10^3/uL; Monocyte% 8.8 % (0-10); NRBC Flagged by Analyzer 0 % (0-5); Neutrophil # 9.44 X10^3/uL (2.7-7.7); Neutrophil % 76.4 % (47-70); Platelet Count 466 K/mm3 (150-450); RBC Distribution Width CV 17.4 % (11.6-14.6); RBC Distribution Width SD 51.8 fl (35.1-43.9); Red Blood Count 4.02 M/mm3 (4.6-6.2); White Blood Count 12.3 K/mm3 (4.4-11.0)
[2022-01-22 10:58] VITALS: BP 114/61; PULSE 99; RESP 18; O2SAT 92
[2022-01-22 11:09] LABS: Lactic Acid 2.4 mmol/L (0.4-1.9)
[2022-01-22] MEDS: 0.9% Normal Saline 1,000 ML 999 ML IV (12:10)
[2022-01-22 12:11] LABS: ALB/GLOB Ratio 0.4 RATIO (0.9-2.4); AST(SGOT) 51 U/L (15-37); Alanine Aminotransfer ALT/SGPT 12 U/L (16-61); Albumin, Serum 1.9 g/dL (3.2-5.0); Alkaline Phosphatase 201 U/L (45-117); Anion Gap 8 (5-15); BUN 13 mg/dL (7-18); BUN/Creat Ratio 26.7 RATIO (10-20); Chloride 105 mmol/L (98-107); Creatinine, Serum 0.49 mg/dL (0.70-1.30); EST Glomerular Filtration Rate 181 mL/min (>60); Est Glom Filt Rate - Afr Amer 219 mL/min (>60); Estimated Creatinine Clearance 67.45 ml/min; Globulin 4.5 g/dL (2.2-4.2); Glucose 88 mg/dL (74-106); Potassium 4.2 mmol/L (3.5-5.1); Protein, Total 6.4 g/dL (6.4-8.2); Sodium Level 140 mmol/L (136-145)
[2022-01-22 13:48] VITALS: O2SAT 94
--- NOTE | 2022-01-22 14:00 | ED.RN ---
PATIENT VERBALIZING HE IS UNABLE TO TAKE CARE OF HIMSELF AT HOME. SPOOL CARRIER GIGI NOTIFIED. GIGI AGREED TO SEE PATIENT AND GIVE RESOURCES.
[2022-01-22 14:39] LABS: Reflex Lactate? Y
[2022-01-22 14:57] VITALS: BP 109/62; PULSE 92; RESP 20; O2SAT 94
--- NOTE | 2022-01-22 15:00 | ED.RN ---
SOCIAL WORK OFFERED TO HELP PATIENT GET ADMITTED TO SNF. PATIENT REFUSED AT THIS TIME. THIS RN HAD EXTENSIVE TALK WITH PATIENT ABOUT THE BENEFITS OF GOING TO FACILITY TO HELP GET STRENGTH BACK. PATIENT STATES HIS DAUGHTER IS AN SECOND GRADE TEACHER AT SNF IN [place]. PATIENT STATES HIS DAUGHTER WILL HELP FACILITATE.
--- NOTE | 2022-01-22 15:05 | CM.ED ---
HIEN Note HIEN and HIEN Jimenes met with patient and his mother. Patient said that it takes awhile to get up from a chair. Patient said that he is independent in going to the bathroom. Patient said that he has deteriorated since he had pneumonia. Patient said that previously he was in [facility] for Rehab. Patient said that his back and hip are causing him issues and when clarified he stated he is in pain. Patient voiced he is not going to SNF for rehab. (Of note, [facility] has no beds per [facility] in TCU). Patient reports that he does not want home health and patient's mother said that patient can't get to the door to open it to let someone in and thus he does not want Home Health. Patient's daughter is childcare center administrator at [facility] and patient said that he will talk to her about what resources are available. SW provided information on [facility] and also [facility] resource list. Patient's mother said that she offered patient to come to her house but patient refused. Patient said I know how to get around in my house. Patient declined information on SNF. HIEN reviewed Medicare Benefits with patient and stated that day 1-20 are covered at 100%. Patient was advised if he goes home and feels he needs SNF he can call the facility and his PCP and they will work with him on admission. Per patient's mother she wants patient admitted, however per RN there is no reason to admit patient. Plan: Resources Provided. Education Provided. HIEN remains available if additional needs arise. Alysha JEFFERSON
[2022-01-22 15:17] LABS: Lactic Acid 1.7 mmol/L (0.4-1.9)
== END 2022-01-22 15:07 | disposition home or self-care (01) ==
PROVIDERS: Emergency Provider Emergency Medicine; PCP Family Medicine; Visit Provider Emergency Medicine
DX: R06.02 Shortness of breath (principal); E87.20 Acidosis, unspecified; M54.2 Cervicalgia; M54.9 Dorsalgia, unspecified; G89.29 Other chronic pain; R91.8 Other nonspecific abnormal finding of lung field; E78.00 Pure hypercholesterolemia, unspecified; Z79.82 Long term (current) use of aspirin; Z79.899 Other long term (current) drug therapy; Z87.891 Personal history of nicotine dependence
CPT/HCPCS: 71045; 80053; 83605; 85025; 87428; 87807; 93005; 99284; J7030; A4216

== ENCOUNTER → 2022-02-06 | Outpatient (CLI) | payer MEDICARE, MEDICAID, SELFPAY ==
[2022-01-22 09:10] VITALS: BP 105/58; PULSE 105; RESP 44; TEMP 36.9; O2SAT 90
--- NOTE | 2022-01-22 10:05 | NURSING ---
DENISE Smalls taken vital signs to start patient check in process. Pt visibly tachypneic breathing 30-45breaths/min. DENISE Smalls asks pt if he is having trouble breathing and pt states no. Pt's Spo2 ranges at rest from 88-92%. Per monitor pt's HR is 105bpm. Pt states I really wish they would have cleared up the pneumonia before they did this today DENISE Smalls asks if pt has been on antibiotic for said pneumonia to which pt replies, no. DENISE Smalls speaks with Dr. Dixon regarding pt's vital signs, Dr. Dixon agrees it is appropriate to page Dr. Patel to see if he would like Radiology to proceed with biopsy given patient's vital signs. 09- Dr. Patel Paged by Radiology. DENISE Smalls reads note from office from 01/09 visit which reads that respirations were 18 at his last office visit with Sp02 98% on room air. 09- Dr. Patel calls DENISE Smalls and agrees that patient is away from his baseline and should be taken to ED for an evaluation. 0928- DENISE Smalls calls ED to inform them of patient and get a room. 0932- Pt taken over to ED to be evaluated.
[2022-02-06] VITALS (9 sets, daily range): BP systolic 104–134; BP diastolic 58–90; PULSE 83–86; RESP 18–26; TEMP 36.3; O2SAT 90–100; BMI 33.7
--- NOTE | 2022-02-06 | ASPIGT_PTH ---
PATIENT: RISA HOWELL LOC: [place] U#:[id number] AGE/SX: 71/M ROOM: RE02/06/[address]: Dr. Adam Patel DO : 1950 BED: DIS: 02/06/2022 SPEC #: [id number] RECD: 02/06/22 10:33 STATUS: LUDWIN REQ #: [id number] SUSANNA: 02/06/22 00:[address]: Adam Patel DEPT: SURGICAL PATHOLOGY RECD BY: Noam Herrera ENTERED: 02/06/22 10:33 SP TYPE: ASP RAD OTHR DR: Dr. Radha Coleman MD Tissues: Lung, NOS Procedures: FNA Specimen Adequacy Gen Path Consultation (on slides) Special Stain Group II Surgery Specimen Level IV Imprint (control) HEADER OPERATION: CT-guided left lung biopsy PRE-OP DIAGNOSIS: Lung nodule TISSUE SUBMITTED: Lung 20-gauge core x5 MICROSCOPIC DIAGNOSIS Left lung nodule, CT-guided core biopsy: Poorly differentiated malignant neoplasm, favor adenocarcinoma. See comment. AM:david 02/09/2022 COMMENT The specimen is evaluated at the time of biopsy by Dr. Machado. Immediate Evaluation = Positive for malignant cells, favor non-small cell carcinoma. Immunohistochemistry ([id number]) supports the above diagnosis. Case is reviewed in consultation with Dr. Cordero of [email or web address] who concurs with the above diagnosis. Complete consultative report is in EMR. Case has been reviewed in consultation with Dr. Archuleta who concurs with the above diagnosis. IDC:SJ MICROSCOPIC DESCRIPTION Slides are reviewed. GROSS DESCRIPTION Received is one container labeled with the patient's name and not further designated. The specimen consists of multiple minute fragments of cavazos tissue that in aggregate measure 0.1 x <0.1 x <0.1 cm. The specimen is totally submitted in one cassette. / AM:david 02/06/2022 TC:0 CPT: 66790, 72692 ADDENDUM ADDENDUM ADDENDUM ADDENDUM ADDENDUM ADDENDUM ADDENDUM ADDENDUM ADDENDUM ADDENDUM ADDENDUM ADDENDUM ADDENDUM ADDENDUM ADDENDUM ADDENDUM ADDENDUM ADDENDUM ADDENDUM ADDENDUM 03/05/2022 09:34 ADDENDUM 03/05/2022 09:34 ADDENDUM 03/05/2022 09:34 ADDENDUM 03/05/2022 09:34 ADDENDUM 03/05/2022 09:34 PD-L1 (KEYTRUDA) IMMUNOHISTOCHEMICAL ANALYSIS FROM [facility] RESULTS: Tumor proportion score: 40% / Positive ONKOSIT ADVANCED LUNG CANCER NGS FROM [facility] RESULT SUMMARY: Abnormal IMMUNOTHERAPY BIOMARKERS: Tumor Mutation [place]: Low (3.9 Mutations / MB) Microsatellite Instability: MSI Negative (0.0 %) PERTINENT NEGATIVE RESULTS: The following genes are NEGATIVE for clinically relevant mutations. Mutational hotspots and surrounding exonic regions were interrogated for DNA level point mutations and indels (fusions not assayed). AKT1, ALK, ATR, BRAF, CHEK1, DDR2, EGFR, ERBB2, ERBB3, FGFR1, MAP2K1, MET, NRAS, NTRK1, PIK3CA, POLD1, POLE, ROS1, STK11, TERT Please see complete report in e-chart or EMR
--- NOTE | 2022-02-06 | IMM_PTH ---
PATIENT: RISA HOWELL LOC: CT U#:[id number] AGE/SX: 71/M ROOM: RE02/06/[address]: Dr. Adam Patel DO : 1950 BED: DIS: 02/06/2022 SPEC #: [id number] RECD: 02/09/22 13:28 STATUS: LUDWIN REQ #: [id number] SUSANNA: 02/06/22 00:[address]: Adam Patel DEPT: IMMUNOHISTOCHEMISTRY RECD BY: Ute Schaffer ENTERED: 02/09/22 13:32 SP TYPE: IMMUNO OTHR DR: Dr. Radha Coleman MD Tissues: Left lung, NOS Procedures: NAPSIN A (add) Eleazar Ret (add) CEA (add) CK20 (add) CK5-6 (add) CK7 (add) CK8 (add) MICKEY (add) KI-67 (add) P53 (add) TTF1 (add) Vimentin (add) 34BE12 (add) Pankeratin (initial) P40 (add) S-100 (add) PHYSICIAN [facility] INSTITUTION [address] [address] SPECIMEN INFORMATION: Tissue Source: Left lung Clinical Info: Lung nodule Specimen Number: [id number] CPT code: 56283, 40922 x15 METHODOLOGY: Deparaffinized sections of prefer/formalin-fixed tissue or PAP/DQ stained slides are incubated with monoclonal/polyclonal antibodies/oligonucleotide probes. Localization is made via biotin free immunoperoxidase method. Appropriate controls are performed and reacted as expected. Results on target cell population are indicated in the following table: RESULTS: ANTIBODY / CLONE RESULT AE1-3 (AE1/AE3/PCK26) positive CK7 (OV-TL12/30) positive CK8 (72xpldS49) positive CK20 (KS20.8) negative 34BE12 (34BE12) negative S-100 (4C4.9) negative TTF-1 (8G7G3/1) positive Napsin A (Rabbit Polyclonal) positive, dim CALRET (polyclonal) negative CK5-6 (D5 & 1684) negative P40 (BC28) negative MICKEY (E29) positive CEA (11-7/TF-3HB-1) negative P53 (DO-7) positive Ki-67 (30-9) positive, high Vimentin (V9) positive These tests were developed and their performance characteristics determined by [facility]. They may not have been cleared or approved by the U.S. Food and Drug Administration. The FDA has determined that such clearance or approval is not necessary. The above immunohistochemical/dualISH markers are ordered and reviewed by the Pathologist. INTERPRETATION: Left lung, CT-guided core biopsy: Poorly differentiated malignant neoplasm, favor adenocarcinoma. AM:david 02/10/2022 Comment: Case has been reviewed in consultation with Dr. Archuleta who concurs with the above diagnosis. IDC:SJ
--- NOTE | 2022-02-06 08:56 | CT_ITS ---
PROCEDURE: CT GUIDED CORE NEEDLE BIOPSY OF A right lower lobe pleural-based LUNG LESION INDICATION: Male, 71 years old. LUNG NODULES PHYSICIAN: Dr. BENEDICTO Islas CONSENT: Written informed consent was obtained having explained the risks, benefits and alternatives in detail with the patient who accepted the risks and agreed to proceed. Laboratory review and clinical assessment was performed. CONSCIOUS SEDATION PROTOCOL: The Drugs used were: 2 mg Versed, IV., and 50 mcg Fentanyl, IV. The sedation time was: 19 minutes. Conscious sedation was started at 9:43 AM and terminated at 10:02 AM. The conscious sedation protocol was independently monitored. RADIATION DOSAGE (If Supplied By Facility): CTDIvol = ( 27 ) mGy, DLP = ( 774.79 ) mGycm Individualized dose optimization techniques were used for this CT. TECHNIQUE: The patient was placed in the prone position. A noncontrast CT was performed to localize the lesion in the right lower lobe. This is pleural-based.. The skin surface was prepped and draped in a sterile fashion. 1% lidocaine was used for local anesthesia. Using CT guidance, a 18-gauge coaxial biopsy device was advanced to the periphery of the lesion. A total of 5 core specimens were obtained. The specimens were placed in a formalin solution. A post procedure CT demonstrated no adverse sequelae or pneumothorax. The patient tolerated the procedure well without adverse event. A negative biopsy does not exclude malignancy. Further imaging or clinical followup based on patient condition and degree of clinical suspicion for malignancy. Suggest rebiopsy, if biopsy results do not match with clinical scenario. CT/Biopsy/Inj or Needle Placement IMPRESSION: 1. CT directed core needle biopsy of the pleural-based nodule in the right lower lobe using CT image guidance with image documentation as described. Pathology results are pending. 2. Conscious Sedation protocol utilized with independent monitoring. Electronically Signed: Marvel Dixon MD at 10:21 EST ,
[2022-02-06] MEDS: Midazolam 2 MG/2 ML Syringe IV (09:43)
[2022-02-06] MEDS: fentaNYL 100 MCG/2 ML Ampul IV (09:43)
[2022-02-06] MEDS: Lidocaine 2% (10 ml mdv) 10 ML Vial INFILT (09:54)
--- NOTE | 2022-02-06 10:00 | RAD_ITS ---
STUDY: X-RAY CHEST REASON FOR EXAM: Male, 71 years old. LT LUNG BIOPSY -- Immediately post lung biopsy TECHNIQUE: AP inspiration and expiration views. COMPARISON: Comparison is made with prior study dated 01/22/2022. FINDINGS: The patient is status post right lung biopsy. No evidence of pneumothorax. Once again, there is evidence of multiple bilateral pleural-based nodules as well as nodular densities in the right lung base. RAD/Chest Insp/Exp 2 View IMPRESSION: Status post right lung biopsy. No evidence of pneumothorax. Electronically Signed: Marvel Dixon MD at 10:18 EST ,
== END | disposition home or self-care (01) ==
LOC: CT 08:53
PROVIDERS: PCP Family Medicine; Referring Provider Internal Medicine Critical Care Medicine; Visit Provider Internal Medicine Critical Care Medicine
DX: R91.8 Other nonspecific abnormal finding of lung field (principal); J98.4 Other disorders of lung
CPT/HCPCS: 32408; 71046; 77012; 88172; 88305; 88313; 88325; 88341; 88342; 99156; J7050

== ENCOUNTER 2022-02-24 15:29 | Emergency (ER) | payer MEDICARE, MEDICAID, SELFPAY ==
[2022-02-24 15:31] VITALS: BP 129/79; PULSE 89; RESP 18; TEMP 35.8; O2SAT 98; BMI 31.9
--- NOTE | 2022-02-24 16:23 | EKG12_ITS ---
Test Reason : Blood Pressure : / mmHG Vent. Rate : 091 BPM Atrial Rate : 091 BPM P-R Int : 244 ms QRS Dur : 128 ms QT Int : 410 ms P-R-T Axes : 098 031 005 degrees QTc Int : 504 ms Sinus rhythm with 1st degree A-V block Right bundle branch block Abnormal ECG Confirmed by ANIA SZYMANSKI, JOANNA ([id number]), editor newspaper JAVIER BARBER ([id number]) on 02/25/2022 11:14:14 AM Referred By: Confirmed By:JOANNA JORGE MD
--- NOTE | 2022-02-24 16:23 | MRI_ITS ---
EXAM: MR LUMBAR SPINE WITHOUT AND WITH INTRAVENOUS CONTRAST CLINICAL INDICATION: Concern for metastatic lung cancer, weakness TECHNIQUE: Multiplanar and multisequence MR images of the lumbar spine without and with intravenous contrast. This report was created using [employer] report [employer] technology. CONTRAST: IV yes yes COMPARISON: None. FINDINGS: VERTEBRAE: Heterogeneous enhancement of the L3, L4, and L5 and S1 vertebral bodies consistent for metastatic bone lesions. L4 posterior expansion of the vertebral body is causing mild spinal stenosis. SPINAL CORD: Unremarkable. Normal position and signal intensity of the conus medullaris. SOFT TISSUES: Unremarkable. DISCS/SPINAL CANAL/NEURAL FORAMINA: L1-L2: L1-2: Normal endplates. Normal disc height and morphology. Normal central canal and intervertebral neuroforamina. L2-L3: L2-3: Normal endplates. Normal disc height and morphology. Normal central canal and intervertebral neuroforamina. L3-L4: L3-4: Normal endplates. Normal disc height and morphology. Normal central canal and intervertebral neuroforamina. L4-L5: L4-5: There is bilateral facet arthropathy. Loss of intervertebral disc height. There is endplate spondylosis of the vertebral body. Unremarkable central canal. Unremarkable intervertebral neuroforamina. L5-S1: There is bilateral facet arthropathy. Loss of intervertebral disc height. There is endplate spondylosis of the vertebral body. Unremarkable central canal. Unremarkable intervertebral neuroforamina. MRI/Spine Lumbar W/WO Contrast IMPRESSION: Heterogeneous enhancement of the L3, L4, and L5 and S1 vertebral bodies consistent for metastatic bone lesions. L4 posterior expansion of the vertebral body is causing mild spinal stenosis. Electronically Signed: Bart Epperson MD at 21:50 EST ,
--- NOTE | 2022-02-24 16:23 | MRI_ITS ---
STUDY: MR Brain WO/W Contrast 02/24/2022 8:33 PM REASON FOR EXAM: Male, 71 years old. Concern for metastatic lung cancer, weakness COMPARISON: None TECHNIQUE: Standardized multiplanar fat and water weighted pulse sequences were obtained. MR Brain WO/W Contrast 17ml CLariscan via IV FINDINGS: There is moderate cerebral atrophy with widening of the extra-axial spaces and ventricular dilatation. Normal white matter tracts of the supratentorial brain. There is mild prominence of the vermian folia, consistent with atrophy of the vermis. The cerebellar hemispheres are normal. Normal bilateral basal ganglia. Normal thalami. There is no extra-axial fluid accumulation. Normal flow voids within the major intracranial circulation suggesting patency by spin echo criteria. Normal sella turcica, pituitary gland, infundibular stalk, optic chiasm and hypothalamus. Normal tectal plate and pineal gland. Normal midbrain, humble and medulla. Normal basal cisterns. Normal bilateral temporal bones. Normal bilateral internal auditory canals. No demonstrated orbital abnormality, within the constraints of a routine brain study. Normal visualized paranasal sinuses. Normal calvarium and skull base. Normal visualized soft tissue structures. Normal visualized upper cervical spine. Aspect score 10 MRI/Brain W/WO Contrast IMPRESSION: (NOT LISTED IN ORDER OF SIGNIFICANCE) There are no acute intracranial findings. Mild to moderate cerebral atrophy Electronically Signed: Bart Epperson MD at 20:35 EST ,
--- NOTE | 2022-02-24 16:23 | MRI_ITS ---
EXAM: MR THORACIC SPINE WITHOUT AND WITH INTRAVENOUS CONTRAST CLINICAL INDICATION: Concern for metastatic lung cancer, weakness TECHNIQUE: Multiplanar and multisequence MR images of the thoracic spine without and with intravenous contrast. This report was created using [employer] report generation technology. CONTRAST: IV cc COMPARISON: CT chest 01/07/2022 FINDINGS: VERTEBRAE: Heterogeneous enhancement of the T4 T8 and T9 vertebral bodies consistent for metastatic bone lesions. T4 posterior expansion of the vertebral body by 3mm is causing mild spinal stenosis. No significant expansion of T8. There is expansion of the T9 vertebral body posteriorly by 3.4mm causing right lateral recess stenosis and mild spinal stenosis. No fracture. Normal alignment. There is preservation of the normal thoracic kyphosis. No scoliosis. DISCS/SPINAL CANAL/NEURAL FORAMINA: Unremarkable. Normal disc height and morphology. Normal spinal canal and neuroforamina. SPINAL CORD: Unremarkable. Normal in signal and morphology. Normal conus medullaris. SOFT TISSUES: Unremarkable. MRI/Spine Thoracic W/WO Contrast IMPRESSION: Heterogeneous enhancement of the T4 T8 and T9 vertebral bodies consistent for metastatic bone lesions. T4 posterior expansion of the vertebral body by 3mm is causing mild spinal stenosis. No significant expansion of T8. There is expansion of the T9 vertebral body posteriorly by 3.4mm causing right lateral recess stenosis and mild spinal stenosis. Electronically Signed: Bart Epperson MD at 21:46 EST ,
--- NOTE | 2022-02-24 16:23 | MRI_ITS ---
EXAM: MR CERVICAL SPINE WITHOUT AND WITH INTRAVENOUS CONTRAST CLINICAL INDICATION: Concern for metastatic lung cancer, weakness TECHNIQUE: Multiplanar and multisequence MR images of the cervical spine without and with intravenous contrast were performed. This report was created using [employer] technology. CONTRAST: 17ml Clariscan via IV COMPARISON: None. FINDINGS: VERTEBRAE: See below. SPINAL CORD: Unremarkable in signal and morphology. SOFT TISSUES: Unremarkable. No prevertebral soft tissue swelling. LYMPH NODES: Unremarkable. There is no cervical adenopathy. DISCS/SPINAL CANAL/NEURAL FORAMINA: C2-C3: C2-3: Normal endplates. Normal disc height and morphology. Normal central canal and intervertebral neuroforamina. C3-C4: C3-4: Normal endplates. Normal disc height and morphology. Normal central canal and intervertebral neuroforamina. C4-C5: C4-5: Loss of intervertebral disc height. There is endplate spondylosis of the vertebral body. Normal central canal and intervertebral neuroforamina. There is bilateral facet arthropathy. Posterior disc bulge. C5-C6: C5-6: Loss of intervertebral disc height. There is endplate spondylosis of the vertebral body. Normal central canal and intervertebral neuroforamina. There is bilateral facet arthropathy. Posterior disc bulge. C6-C7: C6-7: Loss of intervertebral disc height. There is endplate spondylosis of the vertebral body. Normal central canal and intervertebral neuroforamina. There is bilateral facet arthropathy. Posterior disc bulge. C7-T1: Normal endplates. Normal disc height and morphology. Normal central canal and intervertebral neuroforamina. MRI/Spine Cervical W/WO Contrast IMPRESSION: Multilevel degenerative changes, as described above. Electronically Signed: Bart Epperson MD at 20:29 [facility] ,
--- NOTE | 2022-02-24 16:27 | EDS_ITS ---
HPI History of Present Illness Chief Complaint: Weakness Informant: patient Narrative Narrative: History is from patient. Evidently his daughter was here with a missed her in the room. His oncologist, Dr. Conteh had called in regarding this patient and I spoke with him. Patient complains of generalized weakness that has been getting progressively worse. He states it started back in December when he was diagnosed with pneumonia. This led to evaluation by a splicer operator. They then found lung cancer. He has a non-small cell lung cancer stage IV. His weakness and dyspnea got to the point he went into a nursing facility about 3 weeks ago. He states he has been getting progressively weaker. He now cannot walk at all. He has trouble sitting up by himself. He does have some chronic back pain but he states this is more generalized weakness. It is not new or different today. This has been worsening for weeks if not a bit longer. No trauma. He also states that his temperatures are up and down. But he has no known infections. No skin lesions. No coughing although he does have chronic dyspnea now. He has no urinary symptoms. [facility] Medical History Arthritis Chronic neck and back pain Gout History of back problems Hypercholesterolemia Knee pain Limb weakness Shoulder pain Thyroid disease Home Medications ascorbic acid (vitamin C) 1,000 mg tablet 1 g PO DAILY 07/05/18 [History Last Taken Unknown] aspirin 500 mg tablet (Rolly Advanced) 500 mg PO DAILY 07/05/18 [History Last Taken 07/17/18] atorvastatin 20 mg tablet 10 mg PO QHS 07/05/18 [History Last Taken 02/01/22] tamsulosin 0.4 mg capsule 0.4 mg PO DAILY 07/05/18 [History Last Taken Unknown] albuterol sulfate 90 mcg/actuation aerosol inhaler (Ventolin HFA) 1 - 2 puff inhalation Q4H PRN PRN Wheezing #1 ea 01/22/22 [Rx Last Taken Unknown] levothyroxine 88 mcg tablet (Synthroid) 88 mcg PO DAILY 01/22/22 [History Last Taken Unknown] furosemide 40 mg tablet (Lasix) 40 mg PO DAILY 02/06/22 [History Last Taken Unknown] hydrocodone-acetaminophen 5-325mg 5mg-325mg 1 tab PO Q8H PRN Pain 02/06/22 [History Last Taken Unknown] cholecalciferol (vitamin D3) 125 mcg (5,000 unit) capsule 125 mcg PO DAILY 02/18/22 [History Last Taken Unknown] polyethylene glycol 3350 17 gram/dose oral powder (Miralax) 4 g PO DAILY 02/18/22 [History Last Taken Unknown] sennosides 8.6 mg-docusate sodium 50 mg capsule (Senna Plus) 1 tab-cap PO BID PRN 02/18/22 [History Last Taken Unknown] tramadol 50 mg tablet 50 mg PO Q8H PRN 02/18/22 [History Last Taken Unknown] dexamethasone 4 mg tablet 4 mg PO TID #30 tabs 02/24/22 [Rx Last Taken Unknown] Allergy/AdvReac Type Severity Reaction Status Date / Time Penicillins Allergy Intermediate hives Verified 02/24/22 15:31 Family History Father Arthritis Heart disease High cholesterol Brother Diabetes Hypertension High cholesterol Surgical History History of hip replacement No history of previous surgery Social History Smoking Status: Former smoker alcohol intake: former details: 2-6 beers per day substance use type: does not use ROS ROS ED Constitutional Constitutional ED: Reports subjective Eyes Eyes: Denies change in vision ENT ENT ED: Denies rhinorrhea Cardiovascular Cardiovascular: Denies chest pain or palpitations Respiratory/Chest Respiratory/Chest: Reports dyspnea Gastrointestinal Gastrointestinal: Denies diarrhea, nausea or vomiting Genitourinary Genitourinary ED: Denies dysuria Musculoskeletal Musculoskeletal: Denies myalgias Integumentary Denies rash Neurologic Neurologic: Reports weakness; Denies headache(s) Psychiatric Psychiatric: Reports depression Endocrine Endocrinology: Denies polydipsia or polyuria Hematologic/Lymphatic Hematologic/Lymphatic: Denies easy bleeding or easy bruising Allergic/Immunologic Allergic/Immunologic ED: Denies urticaria EXAM Physical Exam Const Vital Signs: 02/24/22 15:31 02/24/22 16:30 02/24/22 17:30 Temperature 96.5 F L Temperature Source Temporal Pulse Rate 89 89 Respiratory Rate 18 20 H Respiratory Effort Normal Non-Labored Respiratory Pattern Normal Blood Pressure 129/79 H 121/74 H Blood Pressure Mean 95 89 Pulse Ox 98 98 Oxygen Delivery Method Nasal Cannula Nasal Cannula Oxygen Flow Rate (L/min) 3 3 02/24/22 20:00 Temperature Temperature Source Pulse Rate 88 Respiratory Rate 15 Respiratory Effort Respiratory Pattern Blood Pressure 112/69 Blood Pressure Mean 83 Pulse Ox 96 Oxygen Delivery Method Nasal Cannula Oxygen Flow Rate (L/min) 3 Positive well nourished and well developed General Appearance ED: well developed and NAD; Negative for cyanotic, diaphoretic or pallor HEENT Reports moist mucous membranes Neck no JVD Chest Wall inspection of chest normal and palpation of chest normal Resp normal respiratory effort and clear to auscultation bilaterally Cardio regular rate, regular rhythm and no murmurs GI normal to inspection, nondistended, normoactive bowel sounds and non-tender Back/Spine no CVA tenderness Extremity Extremity Narrative: He does have some bilateral lower extremity mild edema. No tenderness though. Neuro Neuro Narrative: Patient is awake alert and appropriate. He is a reasonable informant for his medical history. He does have generalized weakness. He can lift his heel off the bed on both sides but get no further. There is no notable asymmetry. When I attempt clonus I get 2 beats at most on both feet. No gross sensory changes. His upper extremities are both a little stronger. He can cell tester my fingers well. His push pull is reasonably strong but still weaker than I would expect for a man of his size. Again no notable sensory changes. Sensorium / Orientation: alert Skin no rashes or lesions noted General Skin Exam: Negative for pallor MDM MDM MDM Narrative Medical decision making narrative: Patient's blood work showed mild elevation of white count and decreased hemoglobin but this is not really new. This is a nonspecific finding. There is no real specific symptom of an infection. Electrolytes show the patient is not markedly dehydrated. No significant electrolyte abnormalities. LFTs do show a slightly higher rise in the past but he is not having abdominal pain nausea or vomiting. He has no tenderness. This may be due from metastasis. Urine showed 0 white cells. Also, magnesium and phosphorus were normal. Chest x-ray showed no acute process. MRI of the brain showed no acute process. MRI of his entire spine showed no sign of metastasis in the cervical spine. However there were other mets in the lumbar vertebra is 3 4 and 5 as well as thoracic vertebra 4 8 and 9. Vertebral L4, T4, T9 all had some expansion with some mild spinal stenosis. Although this does not completely explain his generalized weakness. Patient's not having symptoms more in his lower than upper extremities and there are no lesions to explain upper extremity weakness. I discussed the findings with Dr. Conteh who saw the patient today and sent him in. Plan will be outpatient PET scan. He recommends starting Decadron. I will give him an IV dose here. He will be initially started on 4 mg 3 times daily. He will follow-up in the office. That may be cut down to twice daily depending on his response. Patient will go back to his nursing facility at this time. I explained all these results to the patient and his daughter. Lab Data Attestation: I reviewed the patient's lab results. Labs: Laboratory Results - last 24 hr 02/24/22 02/24/22 02/24/22 16:46 16:46 18:39 WBC 14.4 H RBC 3.90 L Hgb 9.9 L Hct 34.0 L MCV 87.2 MCH 25.4 L MCHC 29.1 L RDW Std Deviation 67.8 H RDW Coeff of Rae 21.9 H Plt Count 329 MPV 9.4 Immature Gran % (Auto) 0.800 Neut % (Auto) 78.1 H Lymph % (Auto) 12.0 L [place]ney % (Auto) 6.5 Eos % (Auto) 2.3 Baso % (Auto) 0.3 Absolute Neuts (auto) 11.3 H Absolute Lymphs (auto) 1.73 Nucleated RBC % 0 Platelet Estimate ADEQUATE RBC Morphology N CHROM Anisocytosis RARE Macrocytosis RARE Sodium 135 L Potassium 4.1 Chloride 97 L Carbon Dioxide 35.0 H Anion Gap 3 L BUN 12 Creatinine 0.50 L Estim Creat Clear Calc 67.45 Est GFR (MDRD) Af Amer 211 Est GFR (MDRD) Non-Af 174 BUN/Creatinine Ratio 23.9 H Glucose 79 Calcium 9.6 Phosphorus 3.6 Magnesium 2.1 Total Bilirubin 0.50 AST 70 H ALT 13 L Alkaline Phosphatase 547 H Total Protein 5.8 L Albumin 1.6 L Globulin 4.2 Albumin/Globulin Ratio 0.4 L Urine Color Dayna Urine Clarity Sl. Cloudy Urine pH 5.0 Ur Specific [place] 1.020 Urine Protein 30 H Urine Glucose (UA) Normal Urine Ketones 5 H Urine Occult Blood Negative Urine Nitrite Negative Urine Bilirubin Negative Urine Urobilinogen 1 H Ur Leukocyte Esterase 25 H Urine RBC 0 SEEN Urine WBC 0 SEEN Ur Squamous Epith Cells 0-5 SEEN Urine Bacteria 1+ Hyaline Casts 0-5 SEEN Urine Mucus 4+ Radiography Diagnostic Testing: Clinical Impression(s) from Imaging Studies Brain MRI 02/24/22 16:23 IMPRESSION: (NOT LISTED IN ORDER OF SIGNIFICANCE) There are no acute intracranial findings. Mild to moderate cerebral atrophy Electronically Signed: Bart Epperson MD at 20:35 EST , Cervical Spine MRI 02/24/22 16:23 IMPRESSION: Multilevel degenerative changes, as described above. Electronically Signed: Bart Epperson MD at 20:29 EST Reading Location ID and State: [facility] / [place] , Service support , Lumbar Spine MRI 02/24/22 16:23 IMPRESSION: Heterogeneous enhancement of the L3, L4, and L5 and S1 vertebral bodies consistent for metastatic bone lesions. L4 posterior expansion of the vertebral body is causing mild spinal stenosis. Electronically Signed: Bart Epperson MD at 21:50 EST Reading Location ID and State: [facility] / [place] , Service support , Thoracic Spine MRI 02/24/22 16:23 IMPRESSION: Heterogeneous enhancement of the T4 T8 and T9 vertebral bodies consistent for metastatic bone lesions. T4 posterior expansion of the vertebral body by 3mm is causing mild spinal stenosis. No significant expansion of T8. There is expansion of the T9 vertebral body posteriorly by 3.4mm causing right lateral recess stenosis and mild spinal stenosis. Electronically Signed: Bart Epperson MD at 21:46 EST , Chest X-Ray 02/24/22 17:00 IMPRESSION: There has been no change in the appearance of the chest since the prior study. Electronically Signed: Bart Epperson MD at 17:18 EST , See MDM EKG Initial EKG: Comments: EKG done for generalized weakness read by me showed a sinus rhythm with slight first-degree AV block. No ventricular ectopy. There is a right bundle branch block but no acute ST elevation or depression. VT interval is long. QRS duration and QTc are also a bit long. No priors. 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, General weakness Instructions: Understanding Bone Metastasis Prescriptions: New dexamethasone 4 mg tablet 4 mg PO TID Qty: 30 0RF No Action atorvastatin 20 mg tablet 10 mg PO QHS tamsulosin 0.4 mg capsule 0.4 mg PO DAILY Rolly Advanced 500 mg tablet 500 mg PO DAILY Label Comments: stopped for scope [address] pena ascorbic acid (vitamin C) 1,000 mg tablet 1 g PO DAILY tramadol 50 mg tablet 50 mg PO Q8H PRN polyethylene glycol 3350 [Miralax] 17 gram/dose powder 4 g PO DAILY cholecalciferol (vitamin D3) 125 mcg (5,000 unit) capsule 125 mcg PO DAILY Senna Plus 8.6-50 mg capsule 1 tab-cap PO BID PRN furosemide [Lasix] 40 mg Tablet 40 mg PO DAILY hydrocodone-acetaminophen [[place]] 5-325 mg Tablet 1 tab PO Q8H PRN (Reason: Pain) levothyroxine [Synthroid] 88 mcg tablet 88 mcg PO DAILY albuterol sulfate [Ventolin HFA] 90 mcg/actuation HFA aerosol inhaler 1 - 2 puff inhalation Q4H PRN PRN (Reason: Wheezing) Qty: 1 0RF Primary Care Provider: Radha Coleman Referrals: Radha Coleman MD [Primary Care Provider] - Thang Conteh MD [Med Staff - Active Staff] - As soon as possible Disposition Disposition: [facility]
[2022-02-24 16:58] LABS: Absolute Lymphocyte Count 1.73 X10^3/uL (0.83-4.51); Absolute Neutrophil Count 11.3 X10^3/uL (2.0-7.7); Basophil# 0.05 X10^3/uL; Basophil% 0.3 % (0-1); Eosinophil# 0.33 X10^3/uL; Eosinophils% 2.3 % (0-5); Hemoglobin 9.9 g/dL (13.0-16.5); Lymphocyte # 1.73 X10^3/ul (0.83-4.51); Mean Corp Hgb Conc 29.1 g/dL (32-36); Mean Corpuscular Hgb 25.4 pg (27.0-32.0); Mean Corpuscular Volume 87.2 fL (80-94); Mean Platelet Vol. 9.4 fl (6.2-12.0); Monocyte# 0.93 X10^3/uL; Monocyte% 6.5 % (0-10); NRBC Flagged by Analyzer 0 % (0-5); Neutrophil # 11.25 X10^3/uL (2.7-7.7); Neutrophil % 78.1 % (47-70); POSITIVE MORPHOLOGY YES; Platelet Count 329 K/mm3 (150-450); RBC Distribution Width CV 21.9 % (11.6-14.6); RBC Distribution Width SD 67.8 fl (35.1-43.9); White Blood Count 14.4 K/mm3 (4.4-11.0)
[2022-02-24 17:00] LABS: Differential Indicated SCAN CRITERIA MET
--- NOTE | 2022-02-24 17:00 | RAD_ITS ---
STUDY: X-RAY CHEST REASON FOR EXAM: Male, 71 years old. Lung cancer TECHNIQUE: XR Chest 1 View COMPARISON: 02.06.22 FINDINGS: Normal visualized aortic arch and descending thoracic aorta. There are diffuse degenerative changes of the visualized thoracic spine. There is degenerative osteoarthritis of the bilateral shoulders. Multiple bilateral pulmonary nodules. Normal size heart. Normal mediastinum and jovany. Normal visualized pulmonary arteries. There is no demonstrated abnormality of the visualized soft tissue structures of the upper abdomen. RAD/Chest 1 View (Portable) IMPRESSION: There has been no change in the appearance of the chest since the prior study. Electronically Signed: Bart Epperson MD at 17:18 EST ,
[2022-02-24 17:11] LABS: ALB/GLOB Ratio 0.4 RATIO (0.9-2.4); AST(SGOT) 70 U/L (15-37); Alanine Aminotransfer ALT/SGPT 13 U/L (16-61); Albumin, Serum 1.6 g/dL (3.2-5.0); Alkaline Phosphatase 547 U/L (45-117); Anion Gap 3 (5-15); BUN 12 mg/dL (7-18); BUN/Creat Ratio 23.9 RATIO (10-20); Calcium,Total 9.6 mg/dL (8.5-10.1); Chloride 97 mmol/L (98-107); EST Glomerular Filtration Rate 174 mL/min (>60); Est Glom Filt Rate - Afr Amer 211 mL/min (>60); Estimated Creatinine Clearance 67.45 ml/min; Globulin 4.2 g/dL (2.2-4.2); Glucose 79 mg/dL (74-106); Magnesium 2.1 mg/dL (1.6-2.6); Phosphorus 3.6 mg/dL (2.5-4.9); Potassium 4.1 mmol/L (3.5-5.1); Protein, Total 5.8 g/dL (6.4-8.2); Sodium Level 135 mmol/L (136-145)
[2022-02-24 17:30] VITALS: BP 121/74; PULSE 89; RESP 20; O2SAT 98
--- NOTE | 2022-02-24 17:36 | ED.RN ---
per mri will not be able to get pt for roughly another hour.
[2022-02-24 17:55] LABS: Anisocytosis RARE; Platelet Estimate ADEQUATE (ADEQ); Red Cell Morphology N CHROM NORMAL (NORM C&C)
[2022-02-24 17:56] LABS: Macrocytosis RARE
[2022-02-24] MEDS: Morphine 4 MG/ML Syringe IV (18:35)
[2022-02-24] MEDS: Ondansetron 4 MG/2 ML Vial IV (18:35)
[2022-02-24 18:42] LABS: Red Blood Cells-Urine 0 SEEN /hpf (0-5); White Blood Cells 0 SEEN /hpf (0-5)
[2022-02-24 18:50] LABS: Color, Urine Amber (Yellow); Glucose, Dipstick Normal (Normal); Ketone-Dipstick 5 mg/dl (Negative); Leukocyte Esterase-Dipstick 25 /ul (Negative); Nitrite-Dipstick Negative (Negative); Occult Blood-Urine Negative /ul (Negative); Protein-Dipstick 30 mg/dl (Negative); Urine Bilirubin Dipstick Negative (Negative); Urine Clarity Sl. Cloudy (Clear); Urine Urobilinogen 1 mg/dl (Normal)
[2022-02-24 18:57] LABS: Mucous, Urine 4+ /hpf (<or=2+)
[2022-02-24 18:58] LABS: Bacteria 1+ /hpf (None Seen); Squamous Epithelial Cells - UA 0-5 SEEN /hpf (0-5)
[2022-02-24 18:59] LABS: Hyaline Cast 0-5 SEEN /lpf (0-5)
[2022-02-24 20:00] VITALS: BP 112/69; PULSE 88; RESP 15; O2SAT 96
[2022-02-24] MEDS: dexAMETHasone 10 MG/ML Vial 6 MG IV (22:59)
[2022-02-24 23:21] VITALS: TEMP 36.9; O2SAT 99
--- NOTE | 2022-02-25 00:18 | ED.RN ---
Report called to LO Meyer at [facility].
== END 2022-02-25 02:05 | disposition home or self-care (01) ==
PROVIDERS: Emergency Provider Emergency Medicine; PCP Family Medicine; Visit Provider Emergency Medicine
DX: C34.90 Malignant neoplasm of unspecified part of unspecified bronchus or lung (principal); C79.51 Secondary malignant neoplasm of bone; R53.1 Weakness; Z87.891 Personal history of nicotine dependence
CPT/HCPCS: 70553; 71045; 72156; 72157; 72158; 80053; 81001; 83735; 84100; 85025; 87428; 93005; 96374; 96375; 99284; A9575; A4216; J2405